=== PATIENT | female | born 1960 | race Hispanic/Latino ===

== ENCOUNTER 2017-04-15 14:33 | Outpatient (CLI) | payer OTHER | END 2017-04-15 14:34 | disposition home or self-care (01) | LOC: LABHHL 14:33 | PROVIDERS: ATTEND Specialist | DX: C50.912 Malignant neoplasm of unspecified site of left female breast (principal) | CPT/HCPCS: 88305; 88342; 88361 ==

== ENCOUNTER 2017-04-25 12:37 | Outpatient (CLI) | payer BC ==
--- NOTE | 2017-04-29 09:20 | Magnetic Resonance Report ---
BILATERAL BREAST MRI WITHOUT AND WITH CONTRAST: 04/25/17 12:37:00 CLINICAL: Newly diagnosed left breast cancer. Status post ultrasound guided needle biopsy of a palpable left subareolar lesion at 1 o'clock one centimeters from the nipple. Pathology revealed invasive lobular carcinoma with an overall Luanne grade 2. COMPARISON:09/12/16 bilateral mammogram and 04/16/15 left mammogram. The newly diagnosed cancer was not identified mammographically. The mammogram shows a palpable marker at the nipple slightly above the nipple and slightly lateral to the nipple. There is no post biopsy mammogram for clip placement. TECHNIQUE: Axial 1.0-mm T1 without, axial high resolution 2.0-mm T2 and axial 1.0-mm dynamic Vibrant high-resolution postcontrast T1 fat saturation sequences on a 1.5 Stacey magnet. The examination was performed with an 8 channel dedicated Sentin[employer] breast coil. Post processing with CAD and subtraction was performed on an vogogo workstation. 14.5 cc of Multihance was injected without incident via a left hand vein 22-gauge INT for the contrast portion of the exam. Consent was obtained prior to the administration of the contrast. FINDINGS: Right: Minimal background parenchymal enhancement. No mass or suspicious enhancement. No suspicious right axillary or right internal mammary lymph nodes. Left: Minimal background parenchymal enhancement. Mild focal retroareolar enhancement appears to correlate with the site of the recent biopsy and known cancer but there is no identifiable biopsy clip. There is a small post biopsy hematoma which measures 1.2 cm. The focal subareolar non-Mass enhancement effect or hematoma in measures 4.6 x 3.3 x 2.7 mm with 100% type I persistent waveform. No suspicious mass or enhancement of the left breast. An oval smooth minimally enhancing mass at 3 o'clock 8.9 cm from the nipple measures 1.0 x 0.6 cm and correlates with a benign appearing mammographic mass which has been stable over time. A second central nonenhancing mass approximately 6 cm from the nipple measures 1.8 x 1.0 cm and it also has a mammographic correlate. No suspicious left axillary or left internal mammary lymph nodes. IMPRESSION: 1. Newly diagnosed left subareolar breast cancer and no additional suspicious lesion. 2. Two benign left breast masses which have been mammographically stable over time. 3. Negative right breast. 4. No suspicious lymph nodes. RIGHT BI-RADS 1 -- Negative LEFT BI-RADS 6 -- Known Cancer
== END 2017-04-25 12:38 | disposition home or self-care (01) ==
LOC: SPVIMAG 12:37
PROVIDERS: ATTEND Surgery
DX: C50.412 Malignant neoplasm of upper-outer quadrant of left female breast (principal)
CPT/HCPCS: A9577; C8908; 77059

== ENCOUNTER 2017-06-25 08:00 | Day surgery (SDC) | payer BC ==
--- NOTE | 2017-06-23 11:02 | Anesthesia Consultation ---
Anesthesia Consult and Med Hx Date of service: 06/23/17 - Airway Anesthetic Teeth Evaluation: Dentures (UPPER), Partials (LOWER) ROM Head & Neck: Adequate Mental/Hyoid Distance: Adequate Mallampati Class: Class III Intubation Access Assessment: Possibly Difficult - Pre-Operative Health Status ASA Pre-Surgery Classification: ASA3 Proposed Anesthetic Plan: General - Pulmonary Hx Smoking: Yes (FOR 5 YEARS, QUIT OVER 30 YEARS AGO) Hx Asthma: No COPD: No Hx Pneumonia: No - Cardiovascular System Hx Hypertension: Yes (5 YEARS) - Central Nervous System Hx Psychiatric Problems: No - Endocrine Hx End Stage Renal Disease: No - Other Systems Hx Alcohol Use: Yes (OCCAS) Hx Substance Use: No Hx Cancer: Yes (L breast CA, h/o R breast CA) Hx Obesity: Yes (BMI 39.0) - Additional Comments Anesthesia Medical History Comments: PONV
[2017-06-23 11:07] LABS: Basophils % (Auto) 0.2 % (0.0-1.8); Eosinophils # (Auto) 0.1 K/mm3 (0.0-0.4); Eosinophils % (Auto) 2.3 % (0.0-4.3); Hematocrit 42.8 % (30.3-42.9); Hemoglobin 14.1 gm/dl (10.1-14.3); Lymphocytes # (Auto) 1.4 K/mm3 (1.2-5.4); Lymphocytes % (Auto) 21.5 % (13.4-35.0); Mean Corpuscular HGB Conc 33 % (30-34); Mean Corpuscular Hemoglobin 30 pg (28-32); Mean Corpuscular Volume 89 fl (79-97); Monocytes # (Auto) 0.3 K/mm3 (0.0-0.8); Monocytes % (Auto) 4.9 % (0.0-7.3); Platelet Count 255 K/mm3 (140-440); Red Blood Count 4.78 M/mm3 (3.65-5.03); Red Cell Distribution Width 14.4 % (13.2-15.2)
[2017-06-23 11:19] LABS: BUN/Creatinine Ratio 20; Blood Urea Nitrogen 12 mg/dL (7-17); Calcium 9.5 mg/dL (8.4-10.2); Hemolysis Index 14
[~2017-06-25 08:00] MED LIST: DECADRON IV NR; DILAUDID IV PRN; LACTATED RINGERS 1,000 ML IV SCH; PEPCID IV NR; REGLAN IV NR; TORADOL IV PRN; TRANSDERM-SCOP TD NR; VERSED IV NR; ZOFRAN IV PRN
[2017-06-25] MEDS ORDERED: DIPRIVAN 10 MG/ML IV ONE (09:17)
[2017-06-25] MEDS ORDERED: SUBLIMAZE ONE (09:18)
[2017-06-25] MEDS ORDERED: XYLOCAINE 1% 20 mL INFILTRATI ONE (09:27)
[2017-06-25] MEDS ORDERED: WATER FOR IRRIG STERILE IR ONE (09:27)
[2017-06-25] MEDS ORDERED: MARCAINE 0.25% INFILTRATI ONE ×2 (09:27→10:01)
[2017-06-25] MEDS ORDERED: DILAUDID ONE (09:59)
[2017-06-25] MEDS ORDERED: XYLOCAINE MPF 2% ONE (09:59)
[2017-06-25] MEDS ORDERED: XYLOCAINE 1% 20 mL ONE (10:00)
[2017-06-25] MEDS ORDERED: ANCEF/STERILE WATER 2 GM/20 ML IV NR (10:00)
[2017-06-25] MEDS ORDERED: ZOFRAN ONE (11:25)
[2017-06-25] MEDS ORDERED: DECADRON ONE (11:25)
--- NOTE | 2017-06-25 11:31 | Operative Report ---
Operative Report Operative Report: Date of Service: June 25, 2017 Preoperative diagnosis: Left breast cancer of the upper outer quadrant Postoperative diagnosis: Same Procedure: Left partial mastectomy of the upper outer quadrant and SLNB Surgeon: Cheli Winn MD Maitre D': Faye Tinajero DO Anesthesia: General Findings: Known left breast mass at the 1:00 position 1-2 cm from the nipple; 2 SLNs Complications: None EBL: Minimal Disposition: PACU in good condition Indications for operative procedure: This is a 56 year old lady with newly diagnosed left breast cancer of the upper outer quadrant, Stage I and personal history of right breast cancer. Genetic testing obtained with no significant gene mutation. Patient wished to proceed with breast conservation. Discussed the close proximity of breast cancer mass to nipple and would attempt to obtain negative margins. She understood if margins were positive, would recommend proceeding with a central mastectomy versus total mastectomy. Proceeding with a central mastectomy was discussed as well and she wish to attempt to save her nipple if possible. Patient wished to proceed with the above procedure. Procedure in detail: Patient was then taken to the operating room and Gen. anesthesia was administered. The left nipple was injected with radioisotope. The left breast and axilla were prepped and draped in the normal sterile operative fashion. Timeout was performed. Gamma probe was inserted into the axilla. The area of hot spot was identified. A left axillary incision was made with a 15 blade knife with dissection taken down to the subcutaneous tissues. The axillary fascia was opened with the Bovie cautery. Gamma probed inserted into the axilla and 2 SLNS were identified. All remaining counts were less than 10% of the highest count. Lymph nodes were sent to pathology for permanent processing. Hemostasis was obtained in the left axillary cavity. Axillary cavity was appropriately irrigated and suctioned. Hemostasis was noted. Axillary cavity was anesthesized with 1% lidocaine mixed with quarter percent marcaine. Axillary fascia was approximated and closed using interrupted 3-0 Vicryl and the skin brought together and closed using a running 4-0 Monocryl followed by skin affix. Attention was then taken towards the left breast. Known breast cancer mass at the 1:00 position 1-2 cm from the nipple. Superior breast incision was made with a 15 blade knife and dissection taken down to subcutaneous tissues. First began raising of the lateral flap with dissection take down anterior to the pectoralis muscle, followed by raising of the medial flap, superior flap and inferior flap with all flaps taken down anterior to the pectoralis muscle. The breast area of concern was appropriately removed posteriorly anterior to the pectoralis muscle with the aid of the Bovie cautery. Specimen was marked and then sent to pathology. Breast cavity was irrigated and hemostasis was obtained. Breast cavity was anesthesized with 1% lidocaine mixed with quarter percent marcaine. The posterior deep breast tissues were approximated and closed using interrupted 3-0 Vicryl. The subcutaneous tissues were approximated and closed using interrupted 3-0 Vicryl followed by closing of the skin with a running 4-0 Monocryl and skin affix. The patient tolerated surgery very well and she was awaken from anesthesia without any complication and transported to PACU in good condition.
--- NOTE | 2017-06-25 11:34 | Short Stay Summary ---
Short Stay Documentation Date of service: 06/25/17 - History H&P: obtained from office - Allergies and Medications Current Medications: Allergies acetaminophen [From Percocet] Allergy (Verified 06/20/17 14:16) Itching oxycodone [From Percocet] Allergy (Verified 06/20/17 14:16) Itching Home Medications Medication Instructions Recorded Confirmed Last Taken Type Simvastatin [Zocor TAB] 40 mg PO QHS 04/25/15 06/25/17 06/24/17 21:00 History Aspirin [Adult Low Dose Aspirin EC] 81 mg PO DAILY 06/20/17 06/25/17 06/18/17 09 :00 History Valsartan/Hydrochlorothiazide 1 tab PO DAILY 06/20/17 06/25/17 06/24/17 09:00 History [Valsartan-Hctz 160-12.5 mg Tab] Active Medications Cefazolin Sodium (Ancef/Sterile Water 2 Gm/20 Ml) 2 gm IV PREOP NR Stop: 06/25/17 13:00 Famotidine (Pepcid) 20 mg IV PREOP NR Stop: 06/25/17 23:59 Last Admin: 06/25/17 09:06 Dose: 20 mg Hydromorphone HCl (Dilaudid) 0.25 mg IV Q10MIN PRN PRN Reason: Pain, Moderate (4-6) Stop: 06/25/17 21:00 Lactated Ringer's (Lactated Ringers) 1,000 mls @ 100 mls/hr IV DIRECT SAAD Last Admin: 06/25/17 09:04 Dose: 100 mls/hr Ketorolac Tromethamine (Toradol) 30 mg IV ONCE PRN PRN Reason: Pain, Moderate (4-6) Stop: 06/25/17 21:00 Metoclopramide HCl (Reglan) 10 mg IV PREOP NR Stop: 06/25/17 23:59 Last Admin: 06/25/17 09:10 Dose: 10 mg Midazolam HCl (Versed) 2 mg IV PREOP NR Stop: 06/25/17 23:59 Last Admin: 06/25/17 09:09 Dose: 2 mg Ondansetron HCl (Zofran) 4 mg IV ONCE PRN PRN Reason: Nausea And Vomiting Stop: 06/25/17 21:00 Scopolamine (Transderm-Scop) 1 each TD PREOP NR Stop: 06/25/17 23:59 Last Admin: 06/25/17 09:04 Dose: 1 each - Brief post op/procedure progress note Date of procedure: 06/25/17 Pre-op diagnosis: Left breast cancer of the upper outer quadrant Post-op diagnosis: same Procedure: Left partial mastectomy with SLNB Anesthesia: GETA Findings: Known left breast cancer at the 1:00 position; 2 SLNs Surgeon: CITLALLI PHILLIPS Power Washer: DACIA DAVIS Estimated blood loss: minimal Pathology: list (left partial mastectomy; 2 SLNs) Specimen disposition: to lab Condition: stable - Disposition Condition at discharge: Good Disposition: DC-01 TO HOME OR SELFCARE Short Stay Discharge Plan Activity: other (no heavy lifting) Diet: regular Wound: other (no heavy lifting; may shower in 24 hours; no baths, pools or lakes ; do not rub or scrub incision; wear breast binder or sprorts bra) Follow up with: TANYA BRISCOE MD, PHD [Primary Care Provider] - 7 Days CITLALLI PHILLIPS MD [Staff Physician] - 7 Days
--- NOTE | 2017-06-25 11:54 | Anesthesia Day of Surgery ---
Anesthesia Day of Surgery - Day of Surgery Patient Examined: Yes Patient H&P Reviewed: Yes Patient is NPO: Yes
--- NOTE | 2017-06-25 11:54 | Post Anesthesia Evaluation ---
- Post Anesthesia Evaluation Patient Participated: Yes Airway Patent: Yes Stable Respiratory Function: Yes Nausea/Vomiting: No Temp > 96.8F: Yes Pain Manageable: Yes Adequeate Hydration: Yes Anesthesia Complications: No Block Receding Appropriately: Not Applicable Patient on Ventilator: No
[2017-06-25] MEDS ORDERED: ULTRAM PO PRN (12:30)
[2017-06-25 13:47] VITALS: BP 143/90
== END 2017-06-25 08:01 | disposition home or self-care (01) ==
LOC: OR 08:00
PROVIDERS: ATTEND Surgery
DX: C50.412 Malignant neoplasm of upper-outer quadrant of left female breast (principal); I10 Essential (primary) hypertension; E66.9 Obesity, unspecified; Z87.891 Personal history of nicotine dependence; Z68.39 Body mass index [BMI] 39.0-39.9, adult; Z17.0 Estrogen receptor positive status [ER+]; Z88.6 Allergy status to analgesic agent
CPT/HCPCS: 19301; 36415; 38525; 78800; 80048; 85025; 88307; 88342; 88368; A9541; J0690; J1100; J1170; J1885; J2250; J2405; J2704; J2765; J3010; J7120; 88333

== ENCOUNTER 2017-07-21 07:27 | Day surgery (SDC) | payer BC ==
[~2017-07-21 07:27] MED LIST changes: -DECADRON IV NR; -DILAUDID IV PRN; +DIPRIVAN 10 MG/ML IV ONE; +GELFOAM TP ONE; +HEPARIN 10,000 UNITS/10 ML ONE; +MARCAINE 0.5% 30 ML INFILTRATI ONE; +NACL 0.9% 0 ML ONE; -PEPCID IV NR; -REGLAN IV NR; +SUBLIMAZE ONE; -TORADOL IV PRN; -TRANSDERM-SCOP TD NR; +VERSED IV ONE; +XYLOCAINE 1% 20 mL ONE; +XYLOCAINE MPF 2% ONE; -ZOFRAN IV PRN
[2017-07-21] MEDS ORDERED: NACL BACTERIOSTATIC INFILTRATI ONE (08:04)
[2017-07-21] MEDS ORDERED: NACL 0.9% 1000 ML 0 ML ONE (08:06)
[2017-07-21] MEDS ORDERED: NACL 0.9% 250ML 250 ML ONE (08:09)
--- NOTE | 2017-07-21 08:22 | Anesthesia Consultation ---
Anesthesia Consult and Med Hx - Airway Anesthetic Teeth Evaluation: Dentures ROM Head & Neck: Adequate Mental/Hyoid Distance: Adequate Mallampati Class: Class II Intubation Access Assessment: Good - Pulmonary Exam CTA: Yes - Cardiac Exam Cardiac Exam: RRR - Pre-Operative Health Status ASA Pre-Surgery Classification: ASA3 Proposed Anesthetic Plan: MAC - Pulmonary Hx Smoking: Yes (FOR 5 YEARS, QUIT OVER 30 YEARS AGO) Hx Asthma: No COPD: No Hx Pneumonia: No - Cardiovascular System Hx Hypertension: Yes (5 YEARS) - Central Nervous System Hx Psychiatric Problems: No - Endocrine Hx End Stage Renal Disease: No - Other Systems Hx Alcohol Use: Yes (OCCAS) Hx Substance Use: No Hx Cancer: Yes (L breast CA, h/o R breast CA) Hx Obesity: Yes (BMI 39.0)
[2017-07-21] MEDS ORDERED: SUBLIMAZE IV PRN (08:23)
[2017-07-21] MEDS ORDERED: DILAUDID IV PRN (08:23)
--- NOTE | 2017-07-21 08:23 | Anesthesia Day of Surgery ---
Anesthesia Day of Surgery - Day of Surgery Patient Examined: Yes Patient H&P Reviewed: Yes Patient is NPO: Yes Beta Blockers: No Cardiac Clearance: No Pulmonary Clearance: No
[2017-07-21] MEDS ORDERED: NACL 0.9% 250ML IR ONE (08:28)
[2017-07-21] MEDS ORDERED: MARCAINE 0.5% INFILTRATI ONE (08:28)
[2017-07-21] MEDS ORDERED: HEPARIN IV ONE (08:28)
[2017-07-21] MEDS ORDERED: XYLOCAINE 1% 20 mL INFILTRATI ONE (08:28)
[2017-07-21] MEDS ORDERED: ANCEF/STERILE WATER 2 GM/20 ML IV NR (09:00)
[2017-07-21] MEDS ORDERED: ZEMURON IV ONE (09:26)
[2017-07-21 09:59] VITALS: BP 141/75
--- NOTE | 2017-07-21 10:04 | Fluoroscopy Report ---
AP CHEST: HISTORY: Breast cancer, Qroctm-s-Ibyh insertion A right subclavian Nrypoy-z-Zlsc has been inserted which terminates near the cavoatrial junction. No pneumothorax is visualized. AP view of the chest demonstrates a normal mediastinal and cardiac contour with clear lungs and normal bony and soft tissue structures. IMPRESSION: Right Epjnku-t-Dkaz placement as described. No pneumothorax.
--- NOTE | 2017-07-21 10:04 | Discharge Summary ---
Providers - Providers Date of Admission: 07/21/2017 Date of discharge: 07/21/17 Attending physician: EDNA YU MD Primary care physician: TANYA BRISCOE Hospitalization Reason for admission: port placement Condition: Stable Pertinent studies: CXR Procedures: US guided port placement Hospital course: uneventful Disposition: DC-01 TO HOME OR SELFCARE Time spent for discharge: 15min - Discharge Diagnoses (1) Breast CA Status: Acute Comment: Port placement for chemotx Core Measure Documentation - Palliative Care Palliative Care/ Comfort Measures: Not Applicable - Core Measures Any of the following diagnoses?: none - VTE Discharge Requirements Deep Vein Thrombosis/Pulmonary Embolism Present on Admission: No Exam - Constitutional Vitals: Temp Pulse Resp BP Pulse Ox 97.9 F 77 16 141/75 96 07/21/17 09:37 07/21/17 09:37 07/21/17 09:37 07/21/17 09:37 07/21/17 09:37 General appearance: Present: no acute distress - EENT Eyes: Present: EOM intact - Neck Neck: Present: supple, other (no signs of infection) - Respiratory Respiratory effort: normal - Cardiovascular Rhythm: regular - Integumentary Integumentary: Present: clear, warm, dry - Psychiatric Psychiatric: appropriate mood/affect, intact judgment & insight Plan Activity: other (no strenuous activity for 1 week) Diet: regular Wound: open to air, keep clean and dry, other (may apply ice pack for 1st week) Special Instructions: no heavy lifting Follow up with: TANYA BRISCOE MD, PHD [Primary Care Provider] - 7 Days
--- NOTE | 2017-07-21 10:05 | Post Operative Note ---
Date of procedure: 07/21/17 (dictation#[id number]) Pre-op diagnosis: Breast CA Post-op diagnosis: same Findings: Normal vascular anatomy Procedure: US guided port placement Anesthesia: MAC Surgeon: EDNA YU Estimated blood loss: minimal (10cc) Pathology: none Condition: stable Disposition: PACU
--- NOTE | 2017-07-21 11:02 | Post Anesthesia Evaluation ---
- Post Anesthesia Evaluation Patient Participated: Yes Airway Patent: Yes Stable Respiratory Function: Yes Nausea/Vomiting: No Temp > 96.8F: Yes Pain Manageable: Yes Adequeate Hydration: Yes Anesthesia Complications: No
--- NOTE | 2017-07-21 12:52 | Operative Report ---
PREOPERATIVE DIAGNOSIS: Breast cancer. POSTOPERATIVE DIAGNOSIS: Breast cancer. PROCEDURE: 1. Insertion of tunneled centrally inserted central venous access device with subcutaneous port. 2. Ultrasound guidance for vascular access. ATTENDING PHYSICIAN: Sandy Fernandez MD ANESTHESIA: MAC. FLUIDS: 650 mL. ESTIMATED BLOOD LOSS: 10 mL. FINDINGS: Normal vascular anatomy. IMPLANT: Infusaport. COMPLICATIONS: None. DISPOSITION: Stable, transported to Recovery Room. INDICATIONS: This is a 56-year-old female with a recent diagnosis of breast cancer. The patient is assessed to be in need for chemotherapy in the near future. Request made to general surgery for Port-A-Cath placement. Procedure, risks, benefits were explained to the patient. Risks included but were not limited to infection, bleeding, pain, injury to surrounding structures, possible pneumothorax, possible hemothorax, possible need for further procedures in the future, possible port malfunction. The patient understood and consented. OPERATIVE NOTE: The patient was brought to the operating room and placed on the table in supine position. After adequate general anesthesia was established, the patient was prepped and draped in the usual sterile fashion. Ultrasound examination had been done prior to prep and drape. We identified the subclavian vein as a good target. It appeared patent throughout its entire course under ultrasound examination. There were no signs of any prior surgery or trauma or infection to that area. Therefore, this was chosen as the site. Antibiotics had been administered. SCDs were in place. Time-out was called. The patient was placed in Trendelenburg position. Under ultrasound guidance, local anesthetic was administered for a planned right subclavian approach. This was monitored under ultrasound to make sure there was no injury to the underlying structures and there was none. A small incision was made using an ultrasound visible needle, I was able to watch the introducer needle go directly into the vein. Please note that we had confirmed the anatomy multiple times to determine which was the vein, which was the artery to make sure that what we thought was the vein was compressible and it was. It in the appropriate location as expected, anatomy was as expected. We were able to access the vein on the first attempt. There were no concerns of injury or penetration through the back wall into the pleural space. Everything was as expected. Guidewire passed very easily. Initially, when fluoroscopy was done, guidewire was going into the left subclavian vein under. Direct fluoroscopy, we watched the guidewire be pulled back and then was redirected into the superior vena cava. Thereafter, additional local was injected into the site of the planned port site. Sharp incision was done, port was created. Catheter was tunneled underneath the skin, that tract had been anesthetized with lidocaine as well. Thereafter, sheath was placed over the wire along with a dilator. Catheter was inserted. We adjusted the length so that it was sitting near the atriocaval junction. We divided the catheter at about 30 cm. Please note that the catheter had been clamped beyond that level to make sure we had no inadvertent air aspiration. The port was then attached, secured with the locking device and placed in the pocket. We had good aspiration and flush with the dilute heparin. We adjusted the length of the catheter with fluoroscopy. It was a little bit difficult to see, I think her heart was in a slightly unusual position as it was angulated more to the left, but with multiple views, it did appear that we had the tip of the catheter in the right atrium. The course of the catheter appeared smooth. There was no kinking. We had easy aspiration. We then locked the port with the locking solution, 10,000 units of heparin in total of 5 mL. The subcutaneous port dermis was closed with interrupted 3-0 Vicryl. Skin was closed at both sites with 4-0 Monocryl subcuticular stitches. The skin was cleaned and dried. Dermabond was placed. Chest x-ray showed no obvious pneumothorax. Official report is pending. The patient tolerated the procedure well and there were no obvious complications. I spoke with the after the case. She was very appreciative. JOB# [id number] JENNIFER/JUSTUS
== END 2017-07-21 10:09 | disposition home or self-care (01) ==
LOC: OR 07:27
PROVIDERS: ATTEND Surgery
DX: C50.412 Malignant neoplasm of upper-outer quadrant of left female breast (principal); I10 Essential (primary) hypertension; E66.9 Obesity, unspecified; Z68.39 Body mass index [BMI] 39.0-39.9, adult; Z88.5 Allergy status to narcotic agent; Z88.8 Allergy status to other drugs, medicaments and biological substances; Z87.891 Personal history of nicotine dependence
CPT/HCPCS: 36561; 76937; 77001; A4649; C1788; J0690; J1644; J2250; J2704; J3010; J7050; J7120; J7030

== ENCOUNTER 2017-08-08 09:57 | Outpatient (CLI) | payer BC ==
[2017-08-08 10:42] LABS: Blood Urea Nitrogen 9 mg/dL (7-17)
--- NOTE | 2017-08-08 14:34 | Cat Scan Report ---
FINAL REPORT EXAM: CT ABDOMEN PELVIS W CON HISTORY: MALIGNANT NEOPLASM OF UNSPECIFIED SITE OF UNSPECIFIED FEMALE CALEB TECHNIQUE: CT examination of the ABDOMEN after IV contrast CT examination of the PELVIS after IV contrast PRIORS: 04/25/2015 FINDINGS: Nonspecific small nodules in lateral left breast. Correlate with mammography. Degenerative change regional skeleton. Again noted is bilateral L5 spondylolysis with grade 1 spondylolisthesis at L5-S1. No evidence of acute fracture. Small calcified gallstones again noted in gallbladder lumen. No CT evidence of other biliary pathology. Normal-appearing liver, left adrenal, pancreas, and spleen. Intact normal caliber abdominal aorta with slight calcified atherosclerotic plaque. Normal caliber IVC. Nonspecific fatty nodule in right adrenal gland with average CT density of-3 and minimum density of-31. This is most compatible with benign lipid rich adenoma. It appears unchanged. Normal-appearing kidneys and ureters. Very small fat containing umbilical hernia. Small bilateral fat containing inguinal hernia. These appear unchanged. No retroperitoneal adenopathy. No evidence of mesenteric mass. Normal-appearing stomach and duodenum. No small bowel distention in the abdomen and pelvis. No pelvic free fluid. Normal-appearing urinary bladder, uterus, adnexae, and rectum. No gross ascites, free air, or colonic distention. Normal-appearing cecum, terminal ileum, and appendix. Moderate sigmoid diverticulosis without CT evidence of diverticulitis. IMPRESSION: Slightly nodular breast parenchyma in the lateral left breast. Correlate with mammography in patient with history of breast cancer Stable grade 1 spondylolisthesis at L5-S1 with bilateral L5 spondylolysis Stable small calcified gallstones Small fatty right adrenal nodule most compatible with benign lipid rich adenoma, unchanged Small fat containing hernias, unchanged Moderate sigmoid diverticulosis without CT evidence of diverticulitis No definite evidence of acute pathology
--- NOTE | 2017-08-08 14:43 | Cat Scan Report ---
FINAL REPORT EXAM: CT CHEST W CON HISTORY: MALIGNANT NEOPLASM OF UNSPECIFIED SITE OF UNSPECIFIED FEMALE CALEB TECHNIQUE: CT examination of the chest after IV contrast PRIORS: AP CT 04/25/2015 FINDINGS: Nonspecific parenchymal nodularity in left breast subareolar and lateral region. Correlate with mammography in patient with history of breast cancer. Normal cardiac size without pericardial effusion. Intact normal caliber thoracic aorta. Normal-appearing esophagus. No hilar mass or mediastinal adenopathy. The visible pulmonary arteries are diffusely patent. Small calcified gallstones in gallbladder lumen. No acute fracture or significant osseous lesion. Slight degenerative change in the regional skeleton. No pneumothorax, pleural effusion, or focal pulmonary consolidation. No evidence of lung mass or nodule. Slight linear scar versus atelectasis in the right middle lobe. IMPRESSION: Slight linear scar versus atelectasis in the right middle lobe. Nonspecific parenchymal nodularity in the left breast subareolar and lateral regions. Correlate with mammography in patient with history of breast cancer Cholelithiasis
== END 2017-08-08 09:58 | disposition home or self-care (01) ==
LOC: CT 09:57
PROVIDERS: ATTEND Internal Medicine Hematology
DX: K80.20 Calculus of gallbladder without cholecystitis without obstruction (principal); M47.896 Other spondylosis, lumbar region; M43.17 Spondylolisthesis, lumbosacral region; C50.919 Malignant neoplasm of unspecified site of unspecified female breast; J98.11 Atelectasis; K57.30 Diverticulosis of large intestine without perforation or abscess without bleeding; E66.9 Obesity, unspecified; I10 Essential (primary) hypertension; M19.90 Unspecified osteoarthritis, unspecified site; E78.00 Pure hypercholesterolemia, unspecified; Z98.51 Tubal ligation status; Z87.891 Personal history of nicotine dependence
CPT/HCPCS: 36415; 71260; 74177; 82565; 84520; Q9967

== ENCOUNTER 2018-06-16 08:29 | Outpatient (CLI) | payer BC ==
--- NOTE | 2018-06-16 09:07 | Mammography Report ---
LEFT DIGITAL DIAGNOSTIC MAMMOGRAM with CAD: 06/16/18 08:29:00 CLINICAL: Status post left partial mastectomy, radiation therapy and chemotherapy. COMPARISON:12/16/17 FINDINGS: The breast is heterogeneously dense, which may obscure small masses.No mass, architectural distortion or suspicious calcifications. IMPRESSION: No mammographic evidence of malignancy. BI-RADS CATEGORY: 2 - - Benign RECOMMENDATION: Routine mammographic screening. COMMENT: 1. Dense breast tissue, i.e., adenosis, fibrocystic changes, etc., may obscure an underlying neoplasm. 2. Approximately 10% of cancers are not detected with mammography. 3. A negative mammography report should not delay biopsy if a clinically suspicious mass is present. COMMENT: Patient follow-up letters are generated by our [employer] application.
== END 2018-06-16 08:30 | disposition home or self-care (01) ==
LOC: SPVWC 08:29
PROVIDERS: ATTEND Surgery
DX: R92.8 Other abnormal and inconclusive findings on diagnostic imaging of breast (principal); I10 Essential (primary) hypertension; E78.00 Pure hypercholesterolemia, unspecified; E66.9 Obesity, unspecified; Z85.3 Personal history of malignant neoplasm of breast

== ENCOUNTER 2018-07-13 09:07 | Outpatient (CLI) | payer BC ==
[2018-07-13 10:22] LABS: Blood Urea Nitrogen 17 mg/dL (7-17)
--- NOTE | 2018-07-13 13:43 | Nuclear Medicine Report ---
BONE SCAN: History: Malignant neoplasm of unspecified site unspecified breast. Comparison: CT chest abdomen and pelvis performed the same day. After injection of isotope, gamma camera imaging of the bony system was done. There is a normal uptake of isotope throughout the bony structures without areas of significantly increased or decreased uptake. Normal uptake in the urinary system is seen. IMPRESSION: Negative bone scan.
--- NOTE | 2018-07-13 14:44 | Cat Scan Report ---
PROCEDURE: CT CHEST W CON TECHNIQUE: CT of the chest performed. IV contrast was administered. Axial images and coronal and sagi ttal reformatted images were obtained. HISTORY: MALIGNANT NEOPLASM OF UNSPECIFIED SITE OF UNSPECIFIED BREAST COMPARISON: 08/08/2017 FINDINGS: There is no abnormal mediastinal or hilar mass seen. There is no pleural effusion seen. There is a nodular density at the right posterior lung base measuring 14 x 8 x 7 mm. There is an ivan cent cavitation or pneumatocele measuring 1.3 cm. Findings are new since the prior. There is no acute infiltrate seen. There is no pneumothorax. There is likely cholelithiasis. IMPRESSION: New 14 x 8 x 7 mm nodule in the right lower lobe at the lung base. Adjacent 1.3 cm pneumatocele/cavit ation. The findings are nonspecific. Given the patient's history of breast cancer, I cannot exclude a metastatic lesion. Consider further evaluation with PET scan. Probable cholelithiasis This document is electronically signed by Alida Landeros MD., July 13 2018 03:41:38 PM ET
--- NOTE | 2018-07-13 21:26 | Cat Scan Report ---
PROCEDURE: CT ABDOMEN PELVIS W CON TECHNIQUE: Computerized axial tomography of the abdomen and pelvis was performed after the IV inject ion of iodinated nonionic contrast. CT DOSE LENGTH PRODUCT: mGycm HISTORY: MALIGNANT NEOPLASM OF UNSPECIFIED SITE OF UNSPECIFIED BREAST COMPARISONS: August 08, 2017 . FINDINGS: An irregular cavitary lesion measuring 1.6 x 1.2 cm is noted involving the medial segment right lower lobe with mild degree adjacent inflammatory change. Liver, spleen, pancreas and left adrenal glands are within normal limits. A 1.2 cm hypodense lesion is noted involving right adrenal. Bilateral kidne ys demonstrate uniform enhancement without hydronephrosis. Aorta is of normal caliber. There is no fr ee fluid or free air. Gallbladder again demonstrates areas of calcifications adherent to the inferior and posterior monterroso measuring about 1 cm. Small bowel loops are within normal limits. Multiple colon ic diverticula are noted without evidence of diverticulitis. Mild degree of periappendiceal fat indur ation with mild degree appendiceal thickening measuring 8 mm in diameter is noted. There is no eviden ce of any fluid collection. Vertebral height is normal. There is mild to moderate degree spondylolist hesis at L5-S1with bilateral L5 spondylolysis. IMPRESSION: Appendix findings consistent with acute appendicitis. There is no evidence of perforation or abscess formation at the present time. L5 spondylolysis with L5-S1 spondylolisthesis as seen on the prior study. Small hypodense lesion of right adrenal consistent with an adenoma is stable. Stable calcifications of the gallbladder most likely representing calcified polyps are stable. An irregular cavitary lesion in the right lower lobe is new since the prior study and most likely rep resents cavitating pneumonia. Follow-up studies are recommended.. This document is electronically signed by Chuck Lam MD., July 13 2018 10:24:26 PM ET
== END 2018-07-13 09:08 | disposition home or self-care (01) ==
LOC: NM 09:07
PROVIDERS: ATTEND Internal Medicine Hematology
DX: K57.30 Diverticulosis of large intestine without perforation or abscess without bleeding (principal); M43.17 Spondylolisthesis, lumbosacral region; M47.816 Spondylosis without myelopathy or radiculopathy, lumbar region; R91.1 Solitary pulmonary nodule; Z87.891 Personal history of nicotine dependence; Z85.3 Personal history of malignant neoplasm of breast; Z90.13 Acquired absence of bilateral breasts and nipples
CPT/HCPCS: 36415; 71260; 74177; 78306; 82565; 84520; A9503; Q9967

== ENCOUNTER 2019-01-19 08:06 | Outpatient (CLI) | payer BC ==
--- NOTE | 2019-01-19 13:05 | Mammography Report ---
DIGITAL SCREENING MAMMOGRAM WITH CAD, 01/19/2019 INDICATION: Routine screening mammography. Breast cancer survivor status post bilateral partial maste ctomy and status post left radiation therapy. TECHNIQUE: Digital bilateral 2D mammography was obtained in the craniocaudal and mediolateral obliq ue projections. This examination was interpreted with the benefit of Computer-Aided Detection analysi s. COMPARISON: 12/16/2017 FINDINGS: Breast Density: The breasts are heterogeneously dense, which may obscure small masses. There is no evidence of dominant mass, suspicious calcifications or architectural distortion in eithe r breast. IMPRESSION: No mammographic evidence of malignancy. Follow up recommendation: Routine yearly BI-RADS Category 2: Benign. A "normal" or negative report should not discourage follow up or biopsy of a clinically significant f inding. A written summary of these findings will be mailed to the patient. The patient will be entered into a mammography reporting system which will generate a reminder letter for the patient's next appointmen t at the appropriate interval. The [employer] recommends yearly mammograms starting at age 40 and continuing as l hollie as a woman is in good health. Breast MRI is recommended for women with an approximate 20-25% or greater lifetime risk of breast cancer, including women with a strong family history of breast or ova boni cancer or who have been treated for Hodgkin's disease. Signer Name: Alistair Maddox MD Signed: 01/19/2019 1:01 PM Workstation Name: [id number]
== END 2019-01-19 08:07 | disposition home or self-care (01) ==
LOC: SPVWC 08:06
PROVIDERS: ATTEND Surgery
DX: Z12.31 Encounter for screening mammogram for malignant neoplasm of breast (principal)
CPT/HCPCS: 77067

== ENCOUNTER 2019-06-04 07:28 | Outpatient (CLI) | payer BC ==
[2019-06-04 08:51] LABS: Blood Urea Nitrogen 14 mg/dL (7-17)
--- NOTE | 2019-06-07 12:21 | Cat Scan Report ---
CT CHEST, ABDOMEN, AND PELVIS with CONTRAST INDICATION : C50.919Malignant neoplasm of unspecified site of unspecified fema. Breast cancer restag ing TECHNIQUE: 100 mL of intravenous contrast administered.. All CT scans at this location are performe d using CT dose reduction for ALARA by means of automated exposure control. COMPARISON: 10/30/2018 FINDINGS: CHEST: The thyroid gland, tracheobronchial tree, esophagus, heart and mediastinal vessels are unrema rkable. No thoracic adenopathy has developed. The lungs remain clear. Previously described 1.5 cm pne umatocele in the posterior right lower lobe is unchanged. No suspicious pulmonary nodule or mass has developed. No pleural fluid or pneumothorax. No suspicious thoracic bony lesion. Surgical clips in th e right axillary again noted. ABDOMEN/PELVIS: The liver remains normal size and contour. Mild fatty infiltration in the liver is s uspected. No suspicious liver mass. There are a few millimetric calcified gallstones within the gallb ladder. No biliary dilatation or inflammation. The pancreas, spleen, kidneys and adrenal glands are u nremarkable. The aorta is normal caliber. No evidence for abdominal or pelvic adenopathy, free fluid or inflammato ry changes. There are a few scattered diverticula in the sigmoid colon, otherwise, the GI system is unremarkable. Normal appendix. The uterus, adnexa and bladder are within normal limits. Moderate to severe degenerative changes are identified at L4-5 and L5-S1. Grade 1 anterolisthesis of L5 with respect to the sacrum is unchanged. No suspicious bony lesion is detected. IMPRESSION: No evidence for recurrent or metastatic disease in the chest, abdomen and pelvis. Cholelithiasis. Sigmoid diverticulosis. Degenerative findings in the lumbar spine. No significant interval change since 10/30/2018. Signer Name: Maycol Payton Jr, MD Signed: 06/07/2019 12:16 PM Workstation Name: [id number]
== END 2019-06-04 07:29 | disposition home or self-care (01) ==
LOC: MAMMO 07:28
PROVIDERS: ATTEND Internal Medicine Hematology & Oncology
DX: K57.30 Diverticulosis of large intestine without perforation or abscess without bleeding (principal); C50.919 Malignant neoplasm of unspecified site of unspecified female breast; K80.20 Calculus of gallbladder without cholecystitis without obstruction
CPT/HCPCS: 36415; 71260; 74177; 77080; 82565; 84520; Q9967

== ENCOUNTER 2019-11-24 13:59 | Outpatient (CLI) | payer BC ==
--- NOTE | 2019-11-24 16:50 | Magnetic Resonance Report ---
BILATERAL BREAST MRI WITH AND WITHOUT CONTRAST CLINICAL INFORMATION/INDICATION: Patient has history of bilateral breast cancer status post bilateral partial mastectomy. Patient is also high risk secondary to family history. TECHNICAL: Coronal STIR, axial T1 and T2-weighted fat sat images were obtained precontrast. Gadoliniu m-based contrast was injected intravenously and serial axial T1 weighted images with fat saturation w ere obtained. 3-D MIP projections, kinetic analysis and subtraction imaging was utilized to evaluate. A dedicated 8-channel breast coil was used for image acquisition. COMPARISON: Prior mammograms 09/23/2019 and 01/19/2019, and breast MRI 04/25/2017 FINDINGS: Right breast: There is heterogeneously dense fibroglandular tissue. There is mild background parenchy mal enhancement. No suspicious areas of enhancement or architectural distortion identified in the rig ht breast. There is no right axillary or internal mammary adenopathy. Left breast: There is heterogeneously dense fibroglandular tissue. There is mild background parenchym al enhancement. There is benign postsurgical and posttreatment change noted in the left breast. There are 2 stable benign-appearing hypoenhancing oval masses in the left breast, one in the central breas t and one in the 3:00 left breast; these demonstrate benign-appearing coarse calcifications mammograp hically and are most compatible with fibroadenomas. No suspicious areas of enhancement identified in the left breast. There is no left axillary or internal mammary adenopathy. IMPRESSION: 1. No suspicious MRI abnormality identified in either breast. Follow up recommendation: Back to schedule. BI-RADS Category 2: Benign. Signer Name: Mayela Rm MD Signed: 11/24/2019 4:45 PM Workstation Name: [id number]
== END 2019-11-24 14:00 | disposition home or self-care (01) ==
LOC: SPVIMAG 13:59
PROVIDERS: ATTEND Surgery
DX: Z85.3 Personal history of malignant neoplasm of breast (principal)
CPT/HCPCS: A9577; C8908; 77049

== ENCOUNTER 2020-01-27 14:51 | Outpatient (CLI) | payer BC ==
--- NOTE | 2020-01-27 16:14 | Mammography Report ---
DIGITAL SCREENING MAMMOGRAM WITH CAD, 01/27/2020 CLINICAL INFORMATION / INDICATION: Routine screening mammography. TECHNIQUE: Digital bilateral 2D mammography was obtained in the craniocaudal and mediolateral obliqu e projections. This examination was interpreted with the benefit of Computer-Aided Detection analysis . COMPARISON: Breast MRI from 11/24/2019. Diagnostic right mammogram from 09/23/2019. Screening mammogra m from 01/19/2019. FINDINGS: Breast Density: There are scattered areas of fibroglandular density. No dominant mass, suspicious calcifications, or architectural distortion in either breast. Benign-appearing calcified nodules in the left breast are stable. IMPRESSION: No mammographic evidence of malignancy. Follow up recommendation: Routine yearly BI-RADS Category 2: Benign. A "normal" or negative report should not discourage follow up or biopsy of a clinically significant f inding. A written summary of these findings will be mailed to the patient. The patient will be entered into a mammography reporting system which will generate a reminder letter for the patient's next appointmen t at the appropriate interval. The [employer] recommends yearly mammograms starting at age 40 and continuing as l hollie as a woman is in good health. Breast MRI is recommended for women with an approximate 20-25% or greater lifetime risk of breast cancer, including women with a strong family history of breast or ova boni cancer or who have been treated for Hodgkin's disease. Signer Name: Manuel Romo MD Signed: 01/27/2020 4:09 PM Workstation Name: [id number]
== END 2020-01-27 14:52 | disposition home or self-care (01) ==
LOC: SPVWC 14:51
PROVIDERS: ATTEND Surgery
DX: Z12.31 Encounter for screening mammogram for malignant neoplasm of breast (principal)
CPT/HCPCS: 77067